=== PATIENT | female | born 1995 | race Caucasian/White ===

== ENCOUNTER 2024-06-22 20:49 | Emergency (ER) | payer OTHER, SELFPAY ==
[2024-06-22] VITALS (13 sets, daily range): BP systolic 135–148; BP diastolic 78–110; PULSE 100–134; RESP 20–24; TEMP 36.9; O2SAT 89–98; BMI 35.3
--- NOTE | 2024-06-22 21:14 | ED_ITS ---
HPI - General Adult General Chief complaint: Shortness of Breath/Dyspnea Stated complaint: shortness of breath Time Seen by Provider: 06/22/24 21:07 History of Present Illness HPI narrative: no PMH per pt report. Starting having upper respiratory symptoms yesterday. Having increased SOB at 1800 along with wheezing. Took home covid test and was negative today. Coughing up thick yellow secretions. Pain 5/10 located in chest per pt report not short, states coughing a lot. 28-year-old woman presenting to the emergency department with concern of cough and shortness of breath. Reports some wheezing. Has productive cough. Home COVID testing was negative. Facial congestion as well. No formal diagnosis of asthma apparent. No rashes. Ruefully admits regular sickness since having a toddler. Related Data Previous Rx's ?Medication ?Instructions ?Recorded albuterol sulfate 90 mcg/actuation 2 inh inhalation Q2-3H PRN 06/22/24 aerosol inhaler shortness of breath or wheezing #8.5 grams Allergies Allergy/AdvReac Type Severity Reaction Status Date / Time dog dander Allergy Mild Verified 06/22/24 21:03 Review of Systems Status of ROS: Reports: 6 or more systems reviewed and unremarkable except as noted in History and below [facility] Social History Smoking Status: Never smoker Do you use any of these nicotine containing products: None How often do you have a drink containing alcohol: never How often do you have six or more drinks on one occasion: Never AUDIT-C Alcohol total score: 0 Non-prescribed substance use: denies use Exam Narrative: Exam Narrative: Pleasant. Seems generally uncomfortable. Congested. Wet cough. End- expiratory trace wheeze. Red throat without edema. Anterior cervical lymphadenopathy. Heart is in an elevated rate and regular rhythm. Const: Vital Signs, click to edit/add: Vital Signs - 24 hr 06/22/24 20:58 06/22/24 21:04 06/22/24 21:19 Temperature 98.4 F Pulse Rate [Pulse Oximeter] 134 H Respiratory Rate 22 Blood Pressure [Ri ght Upper Arm] 148/99 H Pulse Oximetry 93 89 Oxygen Delivery Me thod Room Air Room Air Oxygen Flow Rate 06/22/24 21:21 Temperature Pulse Rate [Pulse Oximeter] Respiratory Rate 24 Blood Pressure [Ri ght Upper Arm] Pulse Oximetry 94 Oxygen Delivery Me thod Nasal Cannula Oxygen Flow Rate 1 Documenting provider has reviewed patient's vital signs: yes Course Vital Signs Vital signs: Initial Vital Signs Temperature Source Temporal Artery Scan 06/22/24 20:58 Pulse Rate 134 H 06/22/24 20:58 Pulse Rhythm Regular 06/22/24 20:58 Respiratory Rate 22 06/22/24 20:58 Blood Pressure 148/99 H 06/22/24 20:58 Blood Pressure Mean 115 H 06/22/24 20:58 Pulse Oximetry 93 06/22/24 20:58 Oxygen Delivery Method Room Air 06/22/24 20:58 Vital Signs Pulse Rate 134 H 06/22/24 20:58 Respiratory Rate 22 06/22/24 20:58 Blood Pressure 148/99 H 06/22/24 20:58 Pulse Oximetry 93 06/22/24 20:58 Oxygen Delivery Method Room Air 06/22/24 20:58 Temperature 98.4 F 06/23/24 00:01 Pulse Rate 100 06/23/24 00:01 Respiratory Rate 20 06/23/24 00:01 Blood Pressure 135/78 06/23/24 00:01 Pulse Oximetry 94 06/22/24 23:59 Oxygen Delivery Method Room Air 06/22/24 23:59 Oxygen Flow Rate 1 06/22/24 22:30 Fraction of Inspired Oxygen 94 06/22/24 21:38 Medications Administered Medications: Discontinued Medications Generic Name Dose Route Start Last Admin Trade Name Freq PRN Reason Stop Dose Admin Albuterol/Ipratropium 1 neb 06/22/24 21:24 06/22/24 21:32 Iprat-Albut 0.5-2.5 Mg/3 Ml Neb IH 06/22/24 21:25 1 neb ONCE ONE Administration Prednisone 60 mg 06/22/24 21:24 06/22/24 21:32 Prednisone 20 Mg Tablet PO 06/22/24 21:25 60 mg ONCE ONE Administration Pseudoephedrine HCl 60 mg 06/22/24 22:49 06/22/24 23:05 Pseudoephedrine Hcl 30 Mg Tablet PO 06/22/24 22:50 60 mg ONCE ONE Administration Medical Decision Making MDM Narrative Medical decision making narrative: Nonspecific URI at a minimum. Would recheck COVID. Might have secondary pneumonia though rather brief course in this regard. Likely some component of postnasal drip contributing to cough. Appears to have some reactive airway comp onent. Chest x-ray without clear infiltrate by my read the I have some concern of the right lower lung may be an evolving infiltrate here. Radiology over-read below INDICATION: Cough and chills, dyspnea, hypoxia.. TECHNIQUE: Chest 2 views. COMPARISON: None. FINDINGS: Cardiovascular and mediastinum: Cardiomediastinal silhouette is within normal limits Lungs and pleural spaces: Minimal basilar opacities likely atelectasis. No sign of pleural effusion. No pneumothorax. Bones and soft tissues: No significant findings. IMPRESSION: No acute or significant findings. Did offer a DuoNeb. Does feel better. Less wheeze on reauscultation. Oxygenating still a little suppressed. Also given dose of prednisone and pseudoephedrine. Screening negative for COVID influenza and RSV. Strep also negative. See patient discharge plan for further discussion. Lab Data Lab results reviewed: Yes I reviewed the patient's lab results Labs: Lab Results 06/22/24 06/22/24 Range/Units 21:10 21:27 SARS-CoV-2 (PCR) Negative SARS-CoV-2 (Negative) Influenza Type A (PCR) Negative PCR FLU A (Negative) Influenza Type B (PCR) Negative PCR FLU B (Negative) RSV (PCR) Negative PCR RSV (Negative) Group A Strep DNA NOT DETECTED (Not Detectd) Discharge Plan Discharge Clinical Impression: URI (upper respiratory infection), Wheeze Patient Disposition: Home, Self-Care Condition: Improved Additional Instructions: Consider sleeping under the mist of a cool mist humidifier. Menthol vapors might be helpful. Prescribing doxycycline as antibiotic from [facility] as well as a course of steroid; prednisone. Albuterol as well from [facility] - better to use with spacer. Albuterol prescription as well to follow at the pharmacy. Pseudoephedrine which is available [id number] might be helpful for drying and decongestion. You might benefit from formal follow-up in clinic once feeling a little better, for better characterization/evaluation of reactive airway/asthma. Return for persistent increased shortness of breath, worsening fever. Do start the doxycycline tonight. Can wait till tomorrow for repeat dose of prednisone. Prescriptions: New albuterol sulfate 90 mcg/actuation HFA aerosol inhaler 2 inh inhalation Q2-3H PRN (Reason: shortness of breath or wheezing) Qty: 8.5 1RF Follow Up/Referrals: Gisselle Patrick DO [Primary Care Provider] - Stand Alone Forms: [employer] Info Instructions
[2024-06-22] MEDS: predniSONE 20 MG TABLET 60 MG PO (21:32)
[2024-06-22] MEDS: IPRAT-ALBUT 0.5-2.5 MG/3 ML NEB 1 NEB IH (21:32)
[2024-06-22 21:55] LABS: PCR FLU A Negative PCR FLU A (Negative); PCR FLU B Negative PCR FLU B (Negative); PCR RSV Negative PCR RSV (Negative); SARS PCR* Negative SARS-CoV-2 (Negative)
--- NOTE | 2024-06-22 21:56 | CRLHL7_ITS ---
For Patients: As a result of the Cures Act, medical imaging exams and procedure reports are released immediately into your electronic medical record. You may view this report before your referring provider. If you have questions, please contact your health care provider. INDICATION: Cough and chills, dyspnea, hypoxia.. TECHNIQUE: Chest 2 views. COMPARISON: None. FINDINGS: Cardiovascular and mediastinum: Cardiomediastinal silhouette is within normal limits Lungs and pleural spaces: Minimal basilar opacities likely atelectasis. No sign of pleural effusion. No pneumothorax. Bones and soft tissues: No significant findings. IMPRESSION: No acute or significant findings. Dictated by Britta Merlos MD @ 06/22/2024 11:18:22 PM (Electronically Signed)
[2024-06-22 22:00] LABS: Strep A DNA Probe* NOT DETECTED (Not Detectd)
--- OUTSIDE RECORDS SUMMARY | 2024-06-22 22:43 | XMS_ITS | Clinical Summary ---
Author Organization [employer] Address [place], [place] [address] Care Team Providers Care Media Clerk Name Role Phone Gisselle Patrick DO Primary Care Provider Allergies Active Allergy Reactions Criticality Noted Date Comments Dog Dander Itching 03/03/2020 Grass Pollen Itching 03/03/2020 Medications Medication Sig Dispensed Refills Start Date End Date Status fluticasone (50 mcg per actuation) nasal solution (FLONASE)Indications:S easonal allergic rhinitis due to pollen Inhale 2 Sprays into affected nostril(s) once daily. 16 g 11 02/29/2024 Active olopatadine (PATADAY) 0.2 % ophthalmic solutionIndications:Ot her chronic allergic conjunctivitis of both eyes Place 1 Drop into both eyes once daily. 5 mL 11 02/29/2024 Active LORazepam (ATIVAN) 0.5 mg tabIndications:General ized anxiety disorder Take 1/2 tablet to 1 tablet by mouth as needed for flight anxiety or panic. 10 Tablet 05/21/2024 Active Active Problems Problem Noted Date Diagnosed Date Pap smear for cervical cancer screening 03/31/20 22 Overview (04/25/2022): 01/2022 UNS 03/2022 NIL Plan: Pap/HPV due 03/2025 08/02/2021 Overview (09/06/2021): Estimated Date of Delivery: None noted. Patient's last menstrual period was 04/08/2021. Last Tdap- 10/08/20 Last Flu vaccine- 09/02/2021 Glucose (GTT) result- too early 20 week US: FINDINGS: ?? Gestational age by LMP: 21 weeks 0 days. Gestational age by first ultrasound: 20 weeks 5 days. Gestational age by today's ultrasound: 21 weeks 1 day. ?? GREGG by LMP: 01/12/2022. GREGG by first ultrasound: 01/14/2022. GREGG by today's ultrasound: 01/11/2022. ?? Heart Rate: 157 beats per minute. SDP: 4 cm. Cervical Length: 3.3 cm. ?? Estimated Weight: 413 grams. Percentile: 61%. ?? Placenta: Anterior. ?? Position: Vertex. ?? Allergies Allergen Reactions ? ? Dog Dander Itching ? ? Grass Pollen Itching OB History Para Term AB Living 3 1 1 0 1 1 SAB TAB Ectopic Multiple Live Births 1 0 0 0 1 # Outcome Date GA Lbr Kvng/2nd Weight Sex Delivery Anes PTL Lv 3 Current 2 SAB 08/27/20 1 Term 09/09/09 40w3d M CS-LTranv AUGUSTINE Name: Agustín Ramirez lab flowsheet for OB labs- Component Latest Ref Rng & Units 07/08/2021 07/08/2021 07/08/2021 4:50 PM 4:50 PM 4:50 PM VARICELLA ZOSTER IGG ANTIBODY Positive 1,051.0 RUBELLA IGG ANTIBODY HIV-1/HIV-2 ANTIBODY Non-Reactive Non-Reactive TREPONEMA PALLIDUM Negative Negative HBSAG Nonreactive Nonreactive HEPATITIS C ANTIBODY Non-Reactive Non-Reactive ABORH O Rh Positive Component Latest Ref Rng & Units 07/08/2021 07/08/2021 4:50 PM 4:50 PM VARICELLA ZOSTER IGG ANTIBODY RUBELLA IGG ANTIBODY Positive 6.93 HIV-1/HIV-2 ANTIBODY Non-Reactive TREPONEMA PALLIDUM Negative HBSAG Nonreactive HEPATITIS C ANTIBODY Non-Reactive ABORH Past Medical History: . Date ? ? Headache(784.0) 10/24/2006 ? ? Irregular menstrual cycle 10/24/06 ? ? Supervision of high-risk of young primigravida 03/21/2009 ? ? Varicella uncomplicated 1998 Past Surgical History: . Laterality Date ? ? APPENDECTOMY 02/07/03 No data on file. ob Problems (from 07/08/21 to present) No problems associated with this episode. Sanjuanita Levi RN.....08/02/2021 8:35 AM Generalized anxiety disorder 07/02/2019 LTBI (latent tuberculosis infection) 09/18/2011 Other specified viral warts 05/28/2007 Resolved Problems Problem Noted Date Diagnosed Date Resolved Date Supervision of high-risk pre gnancy of young primigravida 03/21/2009 08/26/2020 Headache(784.0) 10/24/2006 08/26/2020 Irregular menstrual cycle 10/24/2006 Encounters Date Type Department Care Team Description 06/11/2024 Telephone [facility] [address] [place] [phone] Georgie Engle LICSW Appointment (Pt missed appt today due to car did not start) 06/10/2024 Travel 05/26/2024 Telephone [facility] [address] [place] [phone] Georgie Engle LICSW Late Cancel Appointment (05/26/24 @ 11:45 am ) 04/30/2024 11:45 AM CDT Office Visit [facility] [address] [place] [phone] Georgie Engle LICSW Individual Therapy 04/30/2024 Travel 04/16/2024 Telephone [facility] [address] [place] [phone] Georgie Engle LICSW Late Cancel Appointment 04/04/2024 Travel 04/02/2024 11:45 AM CDT Office Visit [facility] [address] [place] [phone] Georgie Engle LICSW Individual Therapy 04/02/2024 Travel from Last 3 Months Immunizations Name Administration Dates Next Due COVID-19 VACCINE SPIKEVAX (M ODERNA 50MCG/0.5ML) 12YO+ PFS 08/03/2023 COVID-19 vaccine ([employer] NTech 30mcg/0.3mL) PF, MDV 01/14/2021 HepA-HepB (Twinrix) 07/14/2022 Hepatitis A (Peds) 05/09/2007,10/24/2006 Hepatitis B (Peds) 03/12/2006,09/14/2005, 005 Human Papilloma Virus Vaccine 05/09/2007, 007,10/24/2006 Influenza A (H1N1), Inactivated 08/05/2009 Influenza, IIV3 (Age >=3 years) 08/05/2009 Influenza, IIV4 06/20/2023,,09/02/2021,08/23 MMR 07/14/2022,08/15/2005 Meningococcal Vaccine (Menactra) 10/24/2006 Tdap 01/08/2022,10/08/2020,08/15/2005 Family History Medical History Relation Name Comments Hypertension Brother Diabetes Father Heart Disease Maternal Grandfather Hyperlipidemia Maternal Grandfather Diabetes Mother Hyperlipidemia Mother Hypertension Mother Appendicitis Sister Asthma Sister Cholecystitis Sister Relation Name Status Comments Brother Father Maternal Grandfather Mother Sister Social History Tobacco Use Types Packs/Day Years Used Date Smoking Tobacco: Former Cigarettes Q uit: 04/22/2014 Smokeless Tobacco: Never Tobacco Cessation:Counseling Given: Not Answered Alcohol Use Standard Drinks/Week Comments Not Currently 0 (1 standard drink = 0.6 oz pur e alcohol) none currently PHQ-2 Answer Date Recorded PHQ-2 TOTAL SCORE 0 06/10/2024 Social Connections Answer Date Recorded Frequency of Communication with Friends and Fami ly 0 05/22/2023 Financial Resource Strain Answer Date R ecorded Difficulty of Paying Living Expenses 3 05/22/2023 Difficulty of Paying Living Expenses Not on file 05/22/2023 Food Insecurity Answer Date Recorded Worried About Running Out of Food in the Last Ye ar 1 05/22/2023 Transportation Needs Answer Date Record ed Lack of Transportation (Medical) 1 05/22/2023 Housing Stability Answer Date Recorded Unable to Pay for Housing in the Last Year 1 05/22/2023 Sex and Gender Information Value Date Recorded Sex Assigned at Not on file Gender Identity Not on file Sexual Orientation Not on file Obstetrics History Para Term AB IAB SAB Ectopic Multiple Livin g Live Births 3 2 2 0 1 0 1 0 0 2 2 Date Outcome GA Total Labor Labor/2nd/3rd Weight Sex Type Anes PTL Augustine A1 A5 Name Clin 009 Term 40w 3d M CS-LT ranv Ruddy velez Agustín 020 SAB 022 Term 38w 6d 3.58 kg (7 lb 14.3 oz) M CS-LT ranv N Livstorm g Alisha gil Complications:None Delivery Location:[facility] Last Filed Vital Signs Vital Sign Reading Time Taken Comments Blood Pressure 109/75 03/11/2024 8:17 AM CDT Pulse 74 03/11/2024 8:17 AM CDT Temperature 37.1 ??C (98.7 ??F) 11/09/2023 3:09 PM CS T Respiratory Rate 16 05/22/2023 7:09 PM CDT Oxygen Saturation 96% 11/09/2023 3:09 PM EMAIL PRODUCTION SPECIALIST Inhaled Oxygen Concentration - - Weight 80.6 kg (177 lb 9.6 oz) 03/11/2024 8:17 A M CDT Height 147 cm (4' 9.87) 06/20/2023 2:56 PM CDT Body Mass Index 37.28 06/20/2023 2:56 PM CDT Plan of Treatment Upcoming Encounters Date Type Department Care Team (Late st Contact Info) Description 07/02/2024 2:15 PM CDT Office Visit [facility] [address] [place] [phone] Georgie Egnle LICSW [address] [place] [address] 07/30/2024 1:00 PM CDT Office Visit [facility] [address] [place] [address] Gisselle Patrick DO [address] [place] [address] 08/06/2024 11:45 AM EMAIL PRODUCTION SPECIALIST Office Visit [facility] [address] [place] [phone] Georgie Engle LICSW [address] [place] [address] Health Maintenance Due Date Last Done Comments Influenza for age 9-49 06/01/2024 3, 07/14/2022, 09/02/2021, Additional history exists BMI (ht and wt on same day) for age 18+ 06/20/2024 06/20/2023, 04/07/2022, 12/24/2020, Additional history exists Pap test for age 21-65 04/07/2025 2, 04/10/2018, 12/21/2014, Additional history exists Depression screening for age 12+ 06/11/2025 06/11/2024, 06/11/2024, 06/10/2024, Additional history exists Tetanus booster 01/09/2032 01/08/2022, 0 05/2021, 08/15/2005 HIV for age 15-65 Completed 07/08/2021, , 05/11/2010, Additional history exists Hepatitis C screening for age 18-79 Completed 07/08/2021, 08/15/2013, 05/11/2010 Tdap Completed 01/08/2022, 0 05/2021, 08/15/2005 COVID-19 vaccine series Completed 08/03/20, 08/29/2021, 02/04/2021, Additional history exists Pneumococcal series for age 6-64 Aged Out No longer eligible based on patient's age to complete this topic Procedures Procedure Name Priority Date/Time Associated Diagnosis Comments INFORMATION ASSURANCE SPECIALIST THIN PREP PAP SCREEN IMAGED Routine 04/07/2022 2:20 PM CDT Pap smear for cervical cancer screening ANTI HIV 1/2 Routine 07/08/2021 4:50 PM CDT Encounter for supervision of other normal in second trimester ANTI HCV Routine 07/08/2021 4:50 PM CDT Encounter for supervision of other normal in second trimester from Last 3 Months or Most Recently Relevant to Health Maintenance Results * INFORMATION ASSURANCE SPECIALIST THIN PREP PAP SCREEN IMAGED (04/07/2022 2:20 PM CDT) Case Report Gynecologic Cytology Report ? Case: [id number] ? Authorizing Provider: ??Gisselle Patrick, DO ? Collected: ? 04/07/2022 1420 ? Ordering Location: ? [facility] ?? Received: ?04/07/2022 1636 ? Clinic ? First Screen: ?Munson, Gogo ? Rescreen: ?Juliet Wolf L ? Specimen: ?INFORMATION ASSURANCE SPECIALIST ThinPrep Vial Screening, Cervical ? 04/25/2022 9:48 AM CDT [facility] ENTRAL LABORATORY INTERPRETATION/ RESULT NEGATIVE FOR INTRAEPITHELIAL LESION OR MALIGNANCY (NIL) (none) 04/25/2022 9:48 AM CDT [facility]- ENTRAL LABORATORY IMEN ADEQUACY Satisfactory for evaluation Endocervical component present 04/25/2022 9:48 AM CDT [facility] ENTRAL LABORATORY HPV REQUEST HPV if ASCUS 04/25/2022 9:48 AM CDT [facility] ENTRAL LABORATORY Date of LMP 03/202104/25/2022 9:48 AM CDT [facility] Last Pap Date 02/24/22 04/25/2022 9:48 AM CDT [facility] ENTRAL LAB[facility] Last Pap Result UNS 9:48 AM CDT [facility] Abnormal Pap or [place] Bx in last 5 years No 04/25/2022 9:48 AM CDT [facility]- ENTRAL LABORATORY Menstrual Status 04/25/2022 9:48 AM CDT [facility] ENTRAL LABORATORY [place] Bx Done Today No 04/25/2022 9:48 AM CDT [facility] Additional Information None given 04/25/2022 9:48 AM CDT [facility] [employer] ENTRAL LABORATORY Comment: Cytology is screened at [facility], Central Laboratory - [address], [place] [address] and [facility] - [address], [place] [address] and [facility] - [address] [place] [address] Interpreted at [facility], Central Laboratory - [address], [place] [address] Automated Review Successful 04/25/2022 9:48 AM CDT [facility] [employer] [facility] ENTRAL LABORATORY Comment:Specimen processed s uccessfully by automated delivery specialist device, ThinPrep Imaging System, [facility] [facility] Note The pap test is a screening technique, not a diagnostic procedure. It is used primarily to screen for squamous cancers and precursor lesions. Published studies have shown that it is subject to both false negative and false positive results. The pap test should not be used as the sole means to diagnose or exclude pre-malignant and malignant lesions. 04/25/2022 9:48 AM CDT [facility] ENTRAL LABORATORY Other (Cervical) Non-Blood / Unknown 04/07/2022 2:20 PM CDT 04/07/2022 4:36 PM CDT Gisselle Patrick DO PATHOLOGY/CYTOLOGY Performing Organization Address City/[facility]/ZIP Co de Phone Number [facility] [address] [place] [address], * ANTI HCV (07/08/2021 4:50 PM CDT) HEPATITIS C ANTIBODY Non-React alok Non-React alok 07/11/2021 4:57 PM CDT [facility] TRAL LABORATORY Comment:Antibodies to HCV no t detected; does not exclude the possibility of exposure to HCV. Blood BLOOD SPECIMEN / Unknown Venipuncture / Unknown 07/08/2021 4:50 PM CDT 07/08/2021 4:54 PM CDT Gisselle Patrick DO SEND OUTS Performing Organization Address [facility] Co de Phone Number [facility] [address] [place] [address], [place] * ANTI HIV 1/2 (07/08/2021 4:50 PM CDT) HIV-1/HIV-2 ANTIBODY Non-Reacti ve Non-Reacti ve 07/11/2021 4:36 PM CDT [facility] TRAL LABORATORY Comment:HIV-1 p24 and HIV-1/ HIV-2 Ab not detected. Blood BLOOD SPECIMEN / Unknown Venipuncture / Unknown 07/08/2021 4:50 PM CDT 07/08/2021 4:54 PM CDT Gisselle Patrick DO SEND OUTS Performing Organization Address City/[facility]/ZIP Co de Phone Number [facility] [address] [place] [address], [place] from Last 3 Months or Most Recently Relevant to Health Maintenance Advance Directives * Full Code (Latest Code Status on File) Date Activated Date Inactivated Comments 04/23/2009 10:58 AM 04/23/2009 11:41 AM Care Teams Media Clerk Relationship Specialty Start Date End Date Gisselle Patrick [place] [address] PCP - General Family Practice 04/10/14
[2024-06-22] MEDS: PSEUDOEPHEDRINE HCL 30 MG TABLET 60 MG PO (23:05)
[2024-06-23 00:01] VITALS: BP 135/78; PULSE 100; RESP 20; TEMP 36.9
== END 2024-06-23 00:01 | disposition home or self-care (01) ==
PROVIDERS: Emergency Provider Family Medicine; PCP Family Medicine
DX: J06.9 Acute upper respiratory infection, unspecified (principal); R06.2 Wheezing
CPT/HCPCS: 71046; 87631; 87651; 94761; 99284; A9270; J7512

== ENCOUNTER 2024-07-23 20:55 | Outpatient (CLI) | payer OTHER, SELFPAY ==
--- OUTSIDE RECORDS SUMMARY | 2024-07-23 20:57 | XMS_ITS | Clinical Summary ---
Author Organization [employer] [facility] [employer] [facility] Address [place], [place] [address] Care Team Providers Care Wrap Yarn Sorter Name Role Phone Gisselle Patrick DO Primary Care Provider [phone] Allergies Active Allergy Reactions Criticality Noted Date [...] anxiety or panic. 10 Tablet 05/21/2024 Active albuterol HFA (PRO-AIR; VENTOLIN; PROVENTIL) 90 mcg/actuation inhaler Inhale by mouth. 06/22/2024 Active Active Problems Problem Noted Date Diagnosed Date Pap smear for cervical cancer screening 03/31/20 Overview (04/25/2022): 01/2022 UNS 03/2022 NIL Plan: [...] Term 09/09/09 40w3d M CS-LTranv AUGUSTINE Name: Agusítn James lab flowsheet for OB labs- Component Latest [...] Encounters Date Type Department Care Team Description 07/12/2024 10:00 AM CDT - 07/12/2024 11:59 PM CDT Hospital Encounter [facility] [address] [place] [address] Gisselle Patrick, Other cough 07/12/2024 Travel 07/07/2024 3:05 PM CDT Office Visit [facility] [address] [place] [address] iGsselle Patrick, ER Follow up (pneumonia); URI (all year long- cough and congestion, worse at night and in the morning/) 07/07/2024 Travel 06/22/2024 Orders Only [facility] Scanner 1 scan: (1-Ord) VANGIE, XR CHEST 2V, 06/22/2024 06/11/2024 Telephone [facility] [address] [place] [phone] Georgie Engle LICSW Appointment (Pt missed appt today due to car did not start) 06/10/2024 Travel 05/26/2024 Telephone [facility] [address] [place] [phone] Georgie Engle LICSW Late Cancel Appointment (05/26/24 @ 11:45 am ) 04/30/2024 11:45 AM CDT Office Visit [facility] [address] [place] [phone] Georgie Engle, VENTILATING EXPERT Individual Therapy 04/30/2024 Travel from Last 3 Months Immunizations Name Administration Dates Next Due COVID-19 VACCINE SPIKEVAX (M ODERNA 50MCG/0.5ML) 12YO+ PFS 08/03/2023 COVID-19 vaccine (Pfizer-Bio NTech 30mcg/0.3mL) PF, MDV 01/14/2021 HepA-HepB (Twinrix) [...] of Communication with Friends and Fami ly 4 07/07/2024 Financial Resource Strain Answer Date R ecorded Difficulty of Paying Living Expenses 3 07/07/2024 Difficulty of Paying Living Expenses Not on file 07/07/2024 Food Insecurity Answer Date Recorded Do you worry your food will run out before you are able to buy more? 1 07/07/2024 Transportation Needs Answer Date Record ed Lack of Transportation (Medical) 1 07/07/2024 Housing Stability Answer Date Recorded What is your housing situation today? 1 07/07/2024 Sex and Gender Information Value Date Recorded [...] 009 Term 40w 3d M CS-LT ranv Livin g Agustín 020 SAB 022 Term 38w 6d 3.58 kg (7 lb 14.3 oz) M CS-LT ranv N Livin g Juanyros e Complications:None Delivery Location:[facility] Last Filed Vital Signs Vital Sign Reading Time Taken Comments Blood Pressure 130/84 07/07/2024 3:14 PM CDT Pulse 100 07/07/2024 3:14 PM CDT Temperature 37.2 ??C (99 ??F) 07/07/2024 3:14 PM CDT Respiratory Rate 16 05/22/2023 7:09 PM CDT Oxygen Saturation 97% 07/07/2024 3:14 PM CDT Inhaled Oxygen Concentration - - Weight 82.8 kg (182 lb 9.6 oz) 07/07/2024 3:14 P M CDT Height 149.9 cm (4' 11) 07/07/2024 3:51 PM CDT Body Mass Index 36.88 07/07/2024 3:14 PM CDT Plan of Treatment Upcoming Encounters Date Type Department Care Team (Late st Contact Info) Description 07/30/2024 1:00 PM CDT Office Visit [facility] [address] [place] [address] Gisselle Patrick DO [address] [place] [address] 08/04/2024 11:30 AM PSYCHOSOCIAL REHABILITATION COUNSELOR Office Visit [facility] [address] [place] [address] Gisselle Patrick DO [address] [place] [address] 08/06/2024 11:45 AM PSYCHOSOCIAL REHABILITATION COUNSELOR Office [facility] [address] [facility] [phone] Georgie Engle [facility] [address] [place] [address] 08/13/2024 4:00 PM PSYCHOSOCIAL REHABILITATION COUNSELOR Office Visit [facility] [address] [place] [address] Leo Riggs MD [address] [place] [address] Health Maintenance Due Date Last Done Comments COVID-19 vaccine series ( season) 2024 08/03/2023, 08/29/2021, 02/04/2021, Additional history exists Influenza for age 9-49 06/01/2024 3, 07/14/2022, 09/02/2021, Additional history exists BMI (ht and wt on same day) for age 18+ 06/20/2024 06/20/2023, 04/07/2022, 12/24/2020, Additional history exists Pap test for age 21-65 04/07/2025 2, 04/10/2018, 12/21/2014, Additional history exists Depression screening for age 12+ 06/11/2025 06/11/2024, 06/11/2024, 06/10/2024, Additional history exists Tetanus booster 01/09/2032 01/08/2022, 05/2021, 08/15/2005 HIV for age 15-65 Completed 07/08/2021, , 05/11/2010, Additional history exists Hepatitis C screening for age 18-79 Completed 07/08/2021, 08/15/2013, 05/11/2010 Tdap Completed 01/08/2022, 05/2021, 08/15/2005 Pneumococcal series for age 6-64 Aged Out No longer eligible based on patient's age to complete this topic Procedures Procedure Name Priority Date/Time Associated Diagnosis Comments COMPLETE PULMONARY FUNCTION TEST WITH BRONCHODILATOR Routine 07/12/2024 10:00 AM CDT Other cough SCAN-RADIOLOGY REPORT 06/22/2024 12:00 AM CDT TRAY SERVER THIN PREP PAP SCREEN IMAGED Routine 04/07/2022 2:20 PM CDT Pap smear for cervical cancer screening ANTI HIV 1/2 Routine 07/08/2021 4:50 PM CDT Encounter for supervision of other normal in second trimester ANTI HCV Routine 07/08/2021 4:50 PM CDT Encounter for supervision of other normal in second trimester from Last 3 Months or Most Recently Relevant to Health Maintenance Results * COMPLETE PULMONARY FUNCTION TEST WITH BRONCHODILATOR (07/12/2024 10:00 AM CDT) Narrative [facility] - 07/12/2024 10:00 AM CDT Jeffery Callaway MD ? 07/20/2024 ??4:00 PM Pulmonary Function Tests - Results and Interpretation DATE OF SERVICE: 07/12/2024 FINDINGS: FEV1, FVC and FEV1 to FVC ratio are within normal limits. ??There is no significant bronchodilator response. ??Lung volumes are within normal limits. ??Diffusing capacity corrected for hemoglobin is within normal limits. ??Flow-volume loop is within normal limits. INTERPRETATION: Normal spirometry, lung volumes and diffusing capacity without significant bronchodilator response. ??No prior PFTs available for comparison. Jeffery Callaway MD Gisselle Patrick DO PFT ORD [facility] [place], [place] * SCAN-RADIOLOGY REPORT (06/22/2024 12:00 AM CDT) Anatomical Region Laterality Modality Other Scanner OTHER * TRAY SERVER THIN PREP PAP SCREEN IMAGED (04/07/2022 2:20 PM CDT) Case Report Gynecologic Cytology Report ? Case: [id number] ? Authorizing Provider: ??Celina, Gisselle Delgadillo, DO ? Collected: ? 04/07/2022 1420 ? [facility] ?? Received: ?04/07/2022 1636 ? Clinic ? First Screen: ?Munson, Gogo ? Rescreen: ?Juliet Wolf ? Specimen: ?TRAY SERVER ThinPrep Vial Screening, Cervical ? 04/25/2022 9:48 AM CDT [facility]AL [facility] INTERPRETATION/ RESULT NEGATIVE FOR INTRAEPITHELIAL LESION OR MALIGNANCY (NIL) (none) 04/25/2022 9:48 AM CDT [facility] [employer] [facility] ENTRAL LABORATORY IMEN ADEQUACY Satisfactory for evaluation Endocervical component present 04/25/2022 9:48 AM CDT [facility] [employer] [facility] HPV REQUEST HPV if ASCUS 04/25/2022 9:48 AM CDT [facility] [employer] [facility] ENTRAL LABORATORY Date of LMP 03/202104/25/2022 9:48 AM CDT [facility] [employer] [facility] Last Pap Date 02/24/22 04/25/2022 9:48 AM CDT [facility] ENTRAL LABOR[facility] Last Pap Result UNS 9:48 AM CDT [facility] [employer] [facility] ENTRAL LABORATORY Abnormal Pap or [place] Bx in last 5 years No 04/25/2022 9:48 AM CDT [facility] [employer] [facility] ENTRAL LABORATORY Menstrual Status 04/25/2022 9:48 AM CDT [facility] ENTRAL LABORATORY [place] Bx Done Today No 04/25/2022 9:48 AM CDT [facility] [employer] [facility] ENTRAL LABORATORY Additional Information None given 04/25/2022 9:48 AM CDT [facility] ENTRAL LABORATORY Comment: Cytology is screened at [facility], Central Laboratory - [address] [address] and [facility] - [address] [place] [address] and [facility] - [address] [place] [address] Interpreted at [facility], Central Laboratory - [address], [place] [address] Automated Review Successful 04/25/2022 9:48 AM CDT [facility] [employer] [facility] ENTRAL LABORATORY Comment:Specimen processed s uccessfully by automated retail maintenance technician device, ThinPrep Imaging System, [employer] Note The pap test is a [...] and malignant lesions. 04/25/2022 9:48 AM CDT [facility] ENTRAL LABORATORY Other (Cervical) Non-Blood / Unknown 04/07/2022 2:20 PM CDT 04/07/2022 4:36 PM CDT Gisselle Patrick DO PATHOLOGY/CYTOLOGY Performing Organization Address [facility]/ZIP Co de Phone Number [facility] [address] [place] [phone], [place] * ANTI HCV (07/08/2021 4:50 PM CDT) HEPATITIS C ANTIBODY Non-React alok Non-React alok 07/11/2021 4:57 PM CDT [facility] TRAL LABORATORY Comment:Antibodies to HCV no t detected; does not exclude the possibility of exposure to HCV. Blood BLOOD SPECIMEN / Unknown Venipuncture / Unknown 07/08/2021 4:50 PM CDT 07/08/2021 4:54 PM CDT Gisselle Patrick DO SEND OUTS Performing Organization Address [facility] Co de Phone Number [facility] [address] [place] [phone], [place] * ANTI HIV 1/2 (07/08/2021 4:50 PM CDT) HIV-1/HIV-2 ANTIBODY Non-Reacti ve Non-Reacti ve 07/11/2021 4:36 PM CDT [facility] TR[facility] Comment:HIV-1 p24 and HIV-1/ HIV-2 Ab not detected. Blood BLOOD SPECIMEN / Unknown Venipuncture / Unknown 07/08/2021 4:50 PM CDT 07/08/2021 4:54 PM CDT Gisselle Patrick DO SEND OUTS Performing Organization Address City/[facility]/ZIP Co de Phone Number [facility] [address] [place] [address], from Last 3 Months or Most Recently Relevant to Health Maintenance Advance Directives * Full Code (Latest Code Status on File) Date Activated Date Inactivated Comments 04/23/2009 10:58 AM 04/23/2009 11:41 AM Care Teams Wrap Yarn Sorter Relationship Specialty Start Date End Date Gisselle [place] [address] PCP - General Family Practice 04/10/14
== END 2024-07-23 20:56 | disposition home or self-care (01) ==
LOC: SLEEP 20:56
PROVIDERS: PCP Family Medicine; Visit Provider Internal Medicine
DX: G47.33 Obstructive sleep apnea (adult) (pediatric) (principal)
CPT/HCPCS: 95810

== ENCOUNTER 2025-03-08 09:30 | Outpatient (CLI) | payer OTHER, SELFPAY | END 2025-03-08 09:31 | disposition home or self-care (01) | PROVIDERS: PCP Family Medicine; Referring Provider Family Medicine; Visit Provider Nurse Practitioner Family | DX: R30.0 Dysuria (principal); N39.0 Urinary tract infection, site not specified; R39.15 Urgency of urination | CPT/HCPCS: 87086 ==